=== PATIENT | male | born 1975 | race Asian ===

== ENCOUNTER 2022-03-15 08:11 | Emergency (ER) | payer OTHER ==
[~2022-03-15] VITALS: Ht 172.7 cm; Wt 86.2 kg
[~2022-03-15 08:11] MED LIST: Z.0.PLAVIX75 MG MT
[2022-03-15] MEDS ORDERED: DOXYCYCLINE HY100 MG PO (08:23)
[2022-03-15] MEDS ORDERED: LIDOCAINE HCL 1% LOCAL INJ 20 ML VIAL INJ ONE (08:30)
[2022-03-15] MEDS ORDERED: TETANUS/DIPHTHERIA TOX ADULT 0.5 ML SYR IM ONE (08:45)
== END 2022-03-15 08:46 | disposition home or self-care (01) ==
LOC: ER 08:13
DX: L02.415 Cutaneous abscess of right lower limb (principal); M79.661 Pain in right lower leg; I10 Essential (primary) hypertension; E78.5 Hyperlipidemia, unspecified
CPT/HCPCS: 90471; 90714; 99282